=== PATIENT | female | born 1955 | race Caucasian/White ===

== ENCOUNTER 2017-05-14 10:10 | Emergency (ER) | payer SELFPAY ==
[2017-05-14] MEDS ORDERED: Dexamethasone 4 mg/ml Vial ONE (11:06)
== END 2017-05-14 11:19 | disposition home or self-care (01) ==
LOC: ERS 10:10
DX: L30.9 Dermatitis, unspecified (principal); F41.9 Anxiety disorder, unspecified; F31.9 Bipolar disorder, unspecified; Z79.899 Other long term (current) drug therapy
CPT/HCPCS: 99282; J1100